=== PATIENT | male | born 1980 | race Caucasian/White ===

== ENCOUNTER 2021-11-17 15:05 | Emergency (ER) | payer MEDICAID ==
[~2021-11-17] VITALS: Ht 177.8 cm; Wt 68.0 kg
[2021-11-17] MEDS ORDERED: HYDROCODONE/ACETAMINOPHEN 5/325MG TABLET PO ONE (15:45)
[2021-11-17] MEDS ORDERED: IBUP-2030 MT (16:59)
[2021-11-17] MEDS ORDERED: IBUPROFEN 800MG TABLET PO ONE (17:00)
[2021-11-17 17:51] VITALS: BP 121/79
== END 2021-11-17 17:51 | disposition home or self-care (01) ==
LOC: ER 15:05
DX: S06.0X9A Concussion with loss of consciousness of unspecified duration, initial encounter (principal); S16.1XXA Strain of muscle, fascia and tendon at neck level, initial encounter; S66.911A Strain of unspecified muscle, fascia and tendon at wrist and hand level, right hand, initial encounter; S46.912A Strain of unspecified muscle, fascia and tendon at shoulder and upper arm level, left arm, initial encounter; F10.21 Alcohol dependence, in remission; Z88.5 Allergy status to narcotic agent; V18.0XXA Pedal cycle driver injured in noncollision transport accident in nontraffic accident, initial encounter; Y93.89 Activity, other specified; Y92.488 Other paved roadways as the place of occurrence of the external cause
CPT/HCPCS: 73030; 73110; 99284